=== PATIENT | female | born 1930 | race Caucasian/White ===

== ENCOUNTER → 2018-01-01 | Outpatient (CLI) | payer MEDICARE, OTHER ==
[~2018-01-01] MED LIST: ASPIRIN EC81 M1 PO; B12INJ IM; CALCIUM 500 +1 EAC5 PO; CENTRUM SILVER1 EAC4 PO; LOSARTAN-HCTZ1 EAC3 PO; LOVASTAT40; SERTRALINE HCL50 MG PO; ZIAC 2.5-6.251 EACH PO
== END ==
LOC: M.RAD 09:43
DX: Z12.31 Encounter for screening mammogram for malignant neoplasm of breast (principal); E78.00 Pure hypercholesterolemia, unspecified

== ENCOUNTER 2018-10-30 09:53 | Emergency (ER) | payer MEDICARE, OTHER ==
[~2018-10-30] VITALS: Ht 149.9 cm; Wt 49.0 kg
[2018-10-30] MEDS ORDERED: TRAZODONE HCL50 MG PO (10:04)
[2018-10-30 10:19] LABS: ABSOLUTE BASOPHILS 0.1 thou/uL (0.0-0.2); ABSOLUTE EOSINOPHILS 0.2 thou/uL (0.0-0.7); ABSOLUTE LYMPHOCYTES 1.5 thou/uL (0.8-5.3); ABSOLUTE MONOCYTES 0.5 thou/uL (0.0-1.2); ABSOLUTE NEUTROPHILS 4.5 thou/uL (1.6-8.1); BASOPHILS 1.1 %; EOSINOPHILS 3.7 %; HEMATOCRIT 36.2 % (37.0-47.0); HEMOGLOBIN 12.5 gm/dL (12.0-15.0); LYMPHOCYTES 21.4 %; MCH 29.1 pg (26.0-34.0); MCHC 34.6 g/dL (28.0-37.0); MONOCYTES 7.3 %; MPV 6.5 fl. (7.2-11.1); NUCLEATED RBCS 0 /100WBC; PLATELET COUNT* 301 thou/uL (150-400); POLYS 66.5 %; RBC 4.31 mil/uL (4.20-5.00); RDW-CV 12.4 % (10.5-14.5); WBC 6.8 thou/uL (4.0-11.0)
[2018-10-30 10:29] LABS: ANION GAP 8 mmol/L (7-16); BUN 13 mg/dL (7-18); CALCIUM 9.1 mg/dL (8.5-10.1); CHLORIDE 96 mmol/L (98-107); CO2 29 mmol/L (21-32); CREATININE 0.7 mg/dL (0.6-1.3); GLUCOSE 95 mg/dL (70-99); POTASSIUM 3.5 mmol/L (3.5-5.1); SODIUM 133 mmol/L (136-145)
[2018-10-30 10:31] LABS: APTT 29.4 Seconds (25.0-31.3); PROTIME 9.9 Seconds (9.20-11.50)
[2018-10-30 10:43] LABS: ALBUMIN 3.5 g/dL (3.4-5.0); ALKALINE PHOSPHATASE 69 U/L (46-116); CK-MB MASS 1.2 ng/mL (<0.5-3.6); LIPASE 131 U/L (73-393); MAGNESIUM 1.8 mg/dL (1.8-2.4); NT-PRO BRAIN NAT PEPTIDE 239 pg/mL (<300); SGOT 19 U/L (15-37); SGPT 28 U/L (30-65); TOTAL BILIRUBIN 0.6 mg/dL (<0.1-1.0); TOTAL PROTEIN 6.7 g/dL (6.4-8.2); TROPONIN-I LEVEL <0.06 ng/mL (<0.06)
[2018-10-30 12:44] VITALS: BP 170/60
--- NOTE | 2018-10-30 17:40 | EKG ---
[place] [address] ELECTROCARDIOGRAM REPORT Name: SHAILESH VU Demetrius Room: [facility]#: [id number] Admission: 10/30/18 Attend Phys: Discharge: 10/30/18 Date of : 34 Report #: [id number] THIS REPORT FOR: //name// [facility] ED Test Date: 2018-10-30 Test Time: 10:05:20 Pat Name: SHAILESH VU Department: Room: Gender: F Barrel Lapper: Irma MEJIA : 1930 Requested By: Mak Manning Order Number: [id number] MD: Lopez Renteria Measurements Intervals [place] Rate: 51 P: 17 DE: 167 QRS: -57 QRSD: 135 T: 64 QT: 439 QTc: 405 Interpretive Statements Sinus rhythm Left bundle branch block Compared to ECG 01/04/2016 10:37:04 Left bundle-branch block now present Left ventricular hypertrophy no longer present Early repolarization no longer present Myocardial infarct finding no longer present Electronically Signed On 10-30-2018 17:40:42 CDT by Lopez Renteria [email or web address] <ELECTRONICALLY SIGNED> By: Lopez Renteria MD, FACC 10/30/18 1740 1005 1005 Lopez Renteria MD, [facility] /EPI
== END 2018-10-30 12:40 | disposition short-term general hospital (02) ==
LOC: M.ERS 09:53
PROVIDERS: Family Medicine
DX: R07.89 Other chest pain (principal); I10 Essential (primary) hypertension; E78.00 Pure hypercholesterolemia, unspecified